=== PATIENT | male | born 1935 | race Caucasian/White ===

== ENCOUNTER 2016-06-26 18:10 | Inpatient (IN) | payer OTHER ==
--- NOTE | 2016-06-26 18:27 | ED ---
Lower Extremity Injury HPI - General Chief Complaint: Extremity Injury, Lower Stated Complaint: hip injury Time Seen by Provider: 06/26/16 18:18 Source: patient, EMS, RN notes reviewed Mode of arrival: EMS Limitations: no limitations - History of Present Illness Initial Comments: 80-year-old male presents emergency Department chief complaint of left hip pain , fall. Patient states that he was going up a step states he fell back onto hard ground. Patient states that he can't move his left leg without severe pain. He's had no prior injuries. Denies any head injury, LOC. Denies any back pain. Patient states she has no paresthesias at this time in his groin region. Patient states that he has a history of COPD no blood thinners. - Related Data Allergies Allergy/AdvReac Type Severity Reaction Status Date / Time No Known Allergies Allergy Verified 06/26/16 19:06 Review of Systems ROS Statement: Those systems with pertinent positive or pertinent negative responses have been documented in the HPI. ROS Other: All systems not noted in ROS Statement are negative. Past Medical History Past Medical History: COPD Additional Past Medical History / Comment(s): "cold feet" History of Any Multi-Drug Resistant Organisms: None Reported Additional Past Surgical History / Comment(s): right arm Past Psychological History: No Psychological Hx Reported Smoking Status: Current every day smoker Past Alcohol Use History: None Reported Past Drug Use History: None Reported General Exam Limitations: no limitations General appearance: alert, in no apparent distress Respiratory exam: Present: normal lung sounds bilaterally. Absent: respiratory distress, wheezes, rales, rhonchi, stridor Cardiovascular Exam: Present: regular rate, normal rhythm, normal heart sounds. Absent: systolic murmur, diastolic murmur, rubs, gallop, clicks GI/Abdominal exam: Present: soft, normal bowel sounds. Absent: distended, tenderness, guarding, rebound, rigid Extremities exam: Present: other (Left leg there is some shortening rotation noted, tenderness to left hip there is equal pedal pulses +2 bilaterally) Skin exam: Present: warm, dry, intact, normal color. Absent: rash Course Vital Signs 06/26/16 06/26/16 18:20 19:46 Temperature 98 F 98.0 F Pulse Rate 98 78 Respiratory 20 16 Rate Blood Pressure 190/87 170/75 O2 Sat by Pulse 98 97 Oximetry Disposition Clinical Impression: Fracture of hip Disposition: ADMITTED IP TO THIS HOSP Condition: Fair Time of Disposition: 19:56
[2016-06-26] MEDS ORDERED: ONDANSETRON 4 MG/2 ML VIAL IVP STA (19:05)
[2016-06-26] MEDS ORDERED: MORPHINE SULFATE 4 MG/ML SYRINGE IVP STA (19:05)
--- NOTE | 2016-06-26 19:10 | XR ---
EXAMINATION TYPE: XR Hip LT and AP Pelvis DATE OF EXAM: 06/26/2016 6:55 PM COMPARISON: NONE HISTORY: Fall and pain TECHNIQUE: 3 views FINDINGS: There is a comminuted intertrochanteric fracture of the left femur. There is coxa vera def ormity. There is impaction. There is no dislocation. The pelvic ring is intact. IMPRESSION: Acute impacted intertrochanteric fracture left femur..
--- NOTE | 2016-06-26 19:47 | XR ---
EXAMINATION TYPE: XR chest 1V DATE OF EXAM: 06/26/2016 7:36 PM COMPARISON: NONE HISTORY: Hip fracture TECHNIQUE: Single frontal view of the chest is obtained. FINDINGS: There is no heart failure nor confluent pneumonic infiltrate. Thoracic aorta is atheromato us. There is no pleural effusion. Costophrenic angles are clear. IMPRESSION: No active cardiopulmonary disease.
[2016-06-26] MEDS ORDERED: ACETAMINOPHEN TAB 325 MG TAB PO PRN (19:56)
[2016-06-26] MEDS ORDERED: ONDANSETRON 4 MG/2 ML VIAL IVP PRN (19:56)
[2016-06-26] MEDS ORDERED: NALOXONE 0.4 MG/ML 1 ML VIAL IV PRN (19:56)
[2016-06-26 20:06] LABS: Basophils # (A) 0.1 k/uL (0-0.2); Basophils % (A) 0 %; CH 33.9; CHCM 33.3; Eosinophils # (A) 0.1 k/uL (0-0.7); Eosinophils % (A) 1 %; HCT 36.8 % (39.0-53.0); HGB 12.2 gm/dL (13.0-17.5); Luc # (Auto) 0.13; Luc % (Auto) 1; Lymphocytes # (A) 1.1 k/uL (1.0-4.8); Lymphocytes % (A) 8 %; MCH 34.1 pg (25.0-35.0); MCHC 33.3 g/dL (31.0-37.0); MCV 102.5 fL (80.0-100.0); Macrocytosis Slight; Mean Platelet Volume 7.1; Monocytes # (A) 0.5 k/uL (0-1.0); Monocytes % (A) 4 %; Neutrophils % (A) 86 %; RBC 3.59 m/uL (4.30-5.90); RDW 12.9 % (11.5-15.5); WBC 12.7 k/uL (3.8-10.6); WBC (Perox) 13.06
[2016-06-26 20:14] LABS: INR 1.2 (<1.1); Partial Thromboplastin Time 28.3 sec (22.0-30.0); Prothrombin Time 12.1 sec (9.0-12.0)
[2016-06-26 20:17] LABS: ALT 26 U/L (21-72); AST 30 U/L (17-59); Alkaline Phosphatase 75 U/L (38-126); Anion Gap 10 mmol/L; Blood Urea Nitrogen 14 mg/dL (9-20); Calcium 9.5 mg/dL (8.4-10.2); Carbon Dioxide 25 mmol/L (22-30); Chloride 97 mmol/L (98-107); Glucose 100 mg/dL (74-99); Non-African American GFR(MDRD) >60 (>60 ml/min/1.73 sqM); Potassium 4.6 mmol/L (3.5-5.1); Sodium 132 mmol/L (137-145); Total Bilirubin 0.7 mg/dL (0.2-1.3); Total Protein 7.7 g/dL (6.3-8.2)
[2016-06-27] MEDS: MORPHINE SULFATE 4 MG/ML SYRINGE IV PRN ×5 (00:15→18:03)
[2016-06-27] MEDS: SODIUM CHLORIDE 0.9% 1,000 ML IV SCH ×2 (00:18→22:42)
[2016-06-27] MEDS: HEPARIN SODIUM,PORCINE 5,000 UNIT/ML 1 ML VIAL SQ SCH ×2 (08:58→22:42)
[2016-06-27 09:48] LABS: Appearance,Urine Clear (Clear); Bilirubin,Urine Negative (Negative); Glucose,Urine (UA) Negative (Negative); Ketones,Urine Negative (Negative); Leukocyte Esterase,Urine Large (Negative); Mucus,Urine Rare /hpf; Nitrite,Urine Negative (Negative); Particle Count 4220; Protein,Urine Trace (Negative); RBC,Urine 29 /hpf (0-5); Squamous Epithelial Cell,Urine <1 /hpf (0-4); UA Billing (MACRO vs. MICRO) MICRO; Urobilinogen,Urine <2.0 mg/dL (<2.0); WBC,Urine 25 /hpf (0-5)
--- NOTE | 2016-06-27 10:12 | P.HPOR ---
History of Present Illness H&P Date: 06/27/16 Chief Complaint: Left hip fracture This is an 80-year-old male who seen and examined today at bedside. Patient was brought to [facility] emergency room yesterday evening after sustaining a fall. Patient was walking up his wheelchair ramp at his home, he lost his balance and fell backwards landing on his left side. He had extreme pain involving the left leg, he was unable to weight-bear. Patient denied hitting his head during the incident, he never lost consciousness. Upon arrival to [facility], imaging and lab tests were done. Images demonstrated a displaced left intertrochanteric hip fracture. I was contacted via the emergency room staff, and this case was discussed in detail. The patient was admitted under orthopedic care, internal medicine was on consult for surgical clearance is. Patient denies any significant orthopedic history involving the bilateral lower extremities. Patient has a medical history of COPD which his primary care managers at this time. Patient does admit he has some numbness in both the feet , he states this is due to a previous back injury about 5 years ago. He denies any surgery involving the lumbar or thoracic spine. Patient currently denies any headaches, lightheadedness, chest pain, shortness of breath, abdominal discomfort, fever or chills. He denies any new acute lower extremity paresthesias. He denies any pain of the upper extremities, including head and neck. Review of Systems Constitutional: Reports as per HPI Past Medical History Past Medical History: COPD Additional Past Medical History / Comment(s): "cold feet" History of Any Multi-Drug Resistant Organisms: None Reported Additional Past Surgical History / Comment(s): right arm Past Psychological History: No Psychological Hx Reported Smoking Status: Current every day smoker Past Alcohol Use History: None Reported Past Drug Use History: None Reported - Past Family History Mother Family Medical History: No Reported History Medications and Allergies Home Medications Medication Instructions Recorded Confirmed Type Ascorbic Acid [Vitamin C] 500 mg PO DAILY 06/26/16 06/26/16 History Aspirin EC [Ecotrin Low Dose] 81 mg PO DAILY 06/26/16 06/26/16 History Atorvastatin [Lipitor] 10 mg PO HS 06/26/16 06/26/16 History Calcium Carbonate/Vitamin D3 1 tab PO DAILY 06/26/16 06/26/16 History [Calcium 600-Vit D3 800 Tab] Garlic 1 tab PO DAILY 06/26/16 06/26/16 History Advair 250/25 1 puff INHALATION RT-DAILY PRN 06/27/16 06/27/16 History Albuterol Inhaler [Ventolin Hfa 1 - 2 puff INHALATION RT-Q6H PRN 06/27/16 History Inhaler] Seebri Inhaler 1 puff INHALATION RT-DAILY 06/27/16 06/27/16 History Allergies Allergy/AdvReac Type Severity Reaction Status Date / Time No Known Allergies Allergy Verified 06/26/16 20:26 Physical Examination Left lower extremity: There is no obvious open lesions or sores present throughout the left lower extremity There is obvious shortening and external rotation of the left lower extremity when compared to the right Tenderness with palpation noted more the proximal femur over the greater trochanter. Logroll maneuver reproduces pain in the left groin region. Patient is unable to straight leg raise at this time Plantar flexion, dorsiflexion, EHL, FHL are intact. Sensory exam to light touch throughout most of the left lower extremity is intact. There is a loss of light touch throughout the plantar aspect of the left foot. Dorsal pedis pulses 2+ Results - Labs Labs: Abnormal Lab Results - Last 24 Hours (Table) 06/27/16 Range/Units 09:00 Urine Protein Trace H (Negative) Urine Blood Moderate H (Negative) Ur Leukocyte Esterase Large H (Negative) Urine RBC 29 H (0-5) /hpf Urine WBC 25 H (0-5) /hpf Urine Mucus Rare H (None) /hpf Result Diagrams: 06/26/16 19:45 06/26/16 19:45 - Diagnostic results Hip x-ray: report reviewed, image reviewed Assessment and Plan Plan: Imaging: Multiple views left hip were reviewed. Images do demonstrate a displaced left hip fracture involving the trochanters, but also in aspect of the subtrochanteric fracture. Assessment: 1. Displaced left intertrochanteric/subtrochanteric hip fracture 2. Status post fall from standing 3. History of COPD Plan: 1. I was able to discuss this case, including both physical exam findings and imaging studies Dr. Cordero. Surgical intervention will be scheduled for , including an ORIF procedure of the left hip. 2. Risk and benefits of the procedure were discussed with the patient, this including but not excluding infection, blood loss, neurovascular injury, pain and stiffness, development of blood clots, and intact healing of bone, need for subsequent surgery, mortality. Patient is in good understanding of the risk and would like to proceed with this procedure. 3. Obtain consent 4. Nonweightbearing left hip 5. Pain control 5. Nothing by mouth after midnight 6. GI and DVT prophylaxis, heparin 5000 units every 12, we'll discontinue night before surgery 7. Medical clearance 8. Further recommendations to follow Time with Patient: Less than 30
[2016-06-27] MEDS: IPRATROPIUM-ALBUTEROL 3 ML NEB INHALATION SCH (22:05)
[2016-06-27] MEDS: BUDESONIDE 0.5 MG/2 ML NEBU INHALATION SCH (22:06)
[2016-06-27] MEDS: NICOTINE 7MG/24HR PATCH TRANSDERM SCH (22:41)
[2016-06-27] MEDS: ATORVASTATIN 10 MG TAB PO SCH (22:42)
--- NOTE | 2016-06-28 05:51 | CONS ---
DATE OF CONSULTATION: 06/27/2016 REASON FOR CONSULTATION: Medical management requested by Dr. Cordero. CONSULTATION: This is a pleasant 80-year-old patient who lives up in [place] and actually his family doctor is in [place]. Patient has a diagnosis of hypercholesterolemia and COPD. Patient was doing stairs and he took a fall, had a fracture of the left femur. Patient due to go in for surgery tomorrow. Patient's niece is at the bedside. Patient is rather active. Got a good exercise tolerance. No chest pain. Patient presents with wheezing. The patient does smoke 4 to 5 cigarettes a day and had no prior cardiac history. REVIEW OF SYSTEMS: CONSTITUTIONAL: None. HEENT: None. RESPIRATORY: As above. CARDIOVASCULAR: None. GASTROINTESTINAL: None. GENITOURINARY: None. MUSCULOSKELETAL: Pain in the left femur, leg. HEMATOLOGICAL: None. LYMPHATICS: None. PSYCHIATRY: None. NEUROLOGICAL: None. Past medical history of COPD and hypercholesterolemia. PAST SURGICAL HISTORY: Right arm surgery. SOCIAL HISTORY: The patient smoked for many years, down to 4 to 5 cigarettes a day. Lives by himself. Patient did work at [employer]. FAMILY HISTORY: Reviewed, noncontributory to the presentation. HOME MEDICATIONS: 1. Seebri inhaler 1 puff daily. 2. Advair 250/25 p.r.n. 3. Ventolin HFA p.r.n. 4. Garlic 1 tablet p.o. daily. 5. Calcium with vitamin D 1 tablet p.o. daily. 6. Lipitor 10 mg q.h.s. 7. Aspirin 81 mg p.o. daily. 8. Vitamin C 500 mg p.o. daily. ALLERGIES: None. On examination, temperature 97, pulse 91, respiratory rate 16, blood pressure 115/61, pulse ox 94% on room air. GENERAL APPEARANCE: Thin build. Sitting up, not in distress. EYES: Pupils equal. Conjunctivae normal. HENT: Oral cavity normal. NECK: JVD not raised. Mass not palpable. RESPIRATORY: Effort normal. LUNGS: Diminished breath sounds, expiratory wheezing. CARDIOVASCULAR: First and second sounds normal. No edema. ABDOMEN: Soft, nontender. Liver and spleen not palpable. LYMPHATIC: No lymph nodes palpable in neck or axillae. PSYCHIATRY: Alert and oriented x3. Mood and affect normal. NEUROLOGICAL: Pupils equal. Cranial nerves grossly intact. EXTREMITIES: Limited range of motion of the left hip. INVESTIGATIONS: White count 12.7, hemoglobin 12.2. Potassium 4.6. Sodium 132. Patient UA does show leukocyte esterase and WBC. Also, chest x-ray nil acute. ASSESSMENT: 1. Acute left femur fracture secondary to mechanical fall. 2. Possible urinary tract infection. Given that patient is going for surgery chose to be careful and we are going to treat with antibiotics even though patient is asymptomatic. 3. Hyponatremia, likely hypoosmolar, will check serum osmolality. 4. Chronic obstructive pulmonary disease is a smoker. 5. Chronic nicotine dependence. PLAN: Patient has got a good exercise tolerance. Does not need any further cardiac workup and has got a good exercise tolerance. Beta kane is not indicated. The patient is on heparin for DVT prophylaxis. I will start the patient on nebulized bronchodilators and inhaled steroids for a short time to minimize pulmonary infection. Care was discussed with the patient and niece at the bedside. Patient will be given nicotine patch. Thank you, Dr. Cordero.
[2016-06-28] MEDS: MORPHINE SULFATE 4 MG/ML SYRINGE IV PRN ×2 (06:27→16:24)
[2016-06-28] MEDS: HEPARIN SODIUM,PORCINE 5,000 UNIT/ML 1 ML VIAL SQ SCH (08:15)
[2016-06-28] MEDS: NICOTINE 7MG/24HR PATCH TRANSDERM SCH (08:15)
[2016-06-28] MEDS: IPRATROPIUM-ALBUTEROL 3 ML NEB INHALATION SCH ×3 (08:19→21:56)
[2016-06-28] MEDS: BUDESONIDE 0.5 MG/2 ML NEBU INHALATION SCH ×2 (08:21→21:56)
[2016-06-28] MEDS ORDERED: LACTATED RINGERS 1,000 ML IV ONE (10:30)
[2016-06-28] MEDS ORDERED: LIDOCAINE 1% 20 ML VIAL (10MG/ML) FOR IV START INTRADERMA ONE (10:30)
[2016-06-28] MEDS ORDERED: ceFAZolin 2 GM in SODIUM CHLORIDE 0.9% 100 ML IVPB STA (10:49)
[2016-06-28] MEDS ORDERED: PHENYLEPHRINE-0.9% NACL SYG 1 MG/10 ML SYRINGE ONE (10:57)
[2016-06-28] MEDS ORDERED: MIDAZOLAM 2 MG/2 ML VIAL ONE (10:57)
[2016-06-28] MEDS ORDERED: fentaNYL (PF) 50 MCG/ML 2 ML AMP ONE (10:57)
[2016-06-28] MEDS ORDERED: diphenhydrAMINE 50 MG/ML 1 ML VIAL ONE (10:57)
[2016-06-28] MEDS ORDERED: KETAMINE 10 MG/ML 20 ML VIAL ONE (10:57)
[2016-06-28] MEDS ORDERED: ceFAZolin 1,000 MG in SODIUM CHLORIDE 0.9% 1,000 ML IRRIGATION ONE (11:33)
[2016-06-28] MEDS ORDERED: MAGNESIUM HYDROXIDE 2,400 MG/10 ML CUP PO PRN (12:15)
[2016-06-28] MEDS ORDERED: HYDROcodone/APAP 5-325MG 1 EACH TAB PO PRN (12:15)
--- NOTE | 2016-06-28 12:18 | P.OP ---
Date of Procedure: 06/28/16 Preoperative Diagnosis: Left hip intertrochanteric fracture Postoperative Diagnosis: Left hip intertrochanteric fracture Procedure(s) Performed: Open reduction and internal fixation left hip intertrochanteric fracture Implants: Depuy hip capture 135 short compression screw with 6 hole sideplate and 6-4.5 mm appropriate length cortical screws Anesthesia: spinal Surgeon: Willian Cordero Non Cdl Driver #1: Noah Webb Estimated Blood Loss (ml): 100 Pathology: none sent Condition: stable Disposition: PACU Indications for Procedure: 80-year-old patient seen with a left hip intertrochanteric fracture. I recommended open reduction and internal fixation. I discussed the procedure, risks, complications and recovery. Patient was agreeable and consent was obtained. Operative Findings: see description of procedure Description of Procedure: Patient was taken to the operative suite. A spinal anesthetic was formed by the department of anesthesia. Patient received preoperative IV antibiotics. Patient was transferred to the fracture table. The left lower extremity was placed in standard longitudinal traction with some adduction and internal rotation. The right lower extremity placed in a well-padded well-leg lara. C -arm was brought in confirming adequate alignment of the fracture. The left lateral hip was now prepped and draped in the normal sterile orthopedic fashion. An incision was made measuring approximately 12 cm beginning at the distal greater trochanter and extending distally. Dissection taken down to iliotibial band. I made an incision through the iliotibial band and the fascia and then bluntly dissected down to the lateral proximal femur. I now introduced a guidewire into the head neck complex confirming adequate alignment with C-arm. That was depth gauged followed by appropriate triple reaming. I then introduced a 135 short capture screw into the head neck complex with excellent bite and purchase. I connected a 6 hole plate to that and secured to the lateral femur. Appropriate drill holes were then made through the plate. I then introduced 6 appropriate length 4.5 mm cortical screws, all had good bite and purchase. We then reviewed the entire construct under AP and lateral intraoperative imaging and noted good positioning of her and she'll fixation and good alignment of the fracture. Spot films were obtained to document that. The wound was irrigated with antibiotic saline solution. The fascia and IT band were then repaired with #1 Vicryl. The subcutaneous soft tissues were approximated with 2-0 Vicryl. The skin was approximated with skin medardo. Sterile dressings were applied. The patient was awakened and transferred to bed followed by recovery in stable satisfactory condition. Jose Maria HOGAN assisted procedure.
--- NOTE | 2016-06-28 13:54 | XR ---
Limited left hip HISTORY: Hip fracture Intraoperative C-arm image documents the procedure
--- NOTE | 2016-06-28 13:54 | FL ---
Fluoroscopy HISTORY: Hip fracture 30 seconds fluoroscopy time supplied to the referring clinician. 1 intraoperative C-arm images docum ent the procedure. See dictated report from orthopedic surgery.
[2016-06-28] MEDS: ceFAZolin 2 GM in SODIUM CHLORIDE 0.9% 100 ML IVPB SCH (20:00)
[2016-06-28] MEDS: ATORVASTATIN 10 MG TAB PO SCH (20:15)
[2016-06-28] MEDS: SENNOSIDES-DOCUSATE SODIUM 1 EACH TAB PO SCH (20:16)
[2016-06-28] MEDS: SODIUM CHLORIDE 0.9% 1,000 ML IV SCH (20:17)
[2016-06-29] MEDS: ceFAZolin 2 GM in SODIUM CHLORIDE 0.9% 100 ML IVPB SCH (02:40)
[2016-06-29] MEDS: IPRATROPIUM-ALBUTEROL 3 ML NEB INHALATION SCH ×4 (07:39→18:48)
[2016-06-29] MEDS: BUDESONIDE 0.5 MG/2 ML NEBU INHALATION SCH ×2 (07:39→18:48)
[2016-06-29] MEDS: HEPARIN SODIUM,PORCINE 5,000 UNIT/ML 1 ML VIAL SQ SCH ×2 (07:44→20:32)
[2016-06-29] MEDS: NICOTINE 7MG/24HR PATCH TRANSDERM SCH (07:44)
[2016-06-29] MEDS: HYDROcodone/APAP 5-325MG 1 EACH TAB PO PRN (07:49)
[2016-06-29 09:00] LABS: Basophils % (A) 0 %; CH 33.6; Eosinophils % (A) 0 %; HCT 27.3 % (39.0-53.0); HDW 2.12; Luc # (Auto) 0.18; Luc % (Auto) 2; Lymphocytes # (A) 0.9 k/uL (1.0-4.8); Lymphocytes % (A) 9 %; MCHC 33.3 g/dL (31.0-37.0); MCV 102.2 fL (80.0-100.0); Macrocytosis Slight; Monocytes # (A) 0.6 k/uL (0-1.0); Monocytes % (A) 6 %; Neutrophils # (A) 7.9 k/uL (1.3-7.7); Neutrophils % (A) 82 %; RBC 2.67 m/uL (4.30-5.90); RDW 12.7 % (11.5-15.5); WBC 9.7 k/uL (3.8-10.6); WBC (Perox) 10.58
[2016-06-29 09:03] LABS: HGB 9.1 gm/dL (13.0-17.5)
--- NOTE | 2016-06-29 10:24 | P.PN ---
Subjective Principal diagnosis: Status post ORIF left hip fracture Patient is seen today resting in his hospital bed, he appears to be in no acute distress. His pain is well-controlled at this time. Patient denies any headaches, lightheadedness, chest pain, nausea vomiting, fever or chills. Objective - Vital Signs Vital signs: Vital Signs Temp 97.9 F 06/29/16 07:00 Pulse 95 06/29/16 07:51 Resp 20 06/29/16 07:00 BP 128/62 06/29/16 07:00 Pulse Ox 93 L 06/29/16 07:00 Intake & Output 06/28/16 06/29/16 06/29/16 18:59 06:59 18:59 Intake Total 551 200 Output Total 550 650 Balance 1 -650 200 Intake: IV 551 Oral 200 Output: Urine 450 650 Estimated Blood Loss 100 Other: Voiding Method Indwelling Catheter Indwelling Catheter Indwelling Catheter # Voids 1 - Exam Left lower extremity: Postoperative bandages removed, medardo are in good position. There is minimal ecchymosis noted around the incision and soft tissue swelling. Plantar flexion , dorsiflexion, EHL, FHL are intact. The calf is soft, no tenderness with palpation. Sensory exam to light touch throughout the extremities intact. Dorsal pedis pulses 2+. - Labs CBC & Chem 7: 06/29/16 08:34 06/26/16 19:45 Labs: Abnormal Lab Results - Last 24 Hours (Table) 06/29/16 Range/Units 08:34 RBC 2.67 L (4.30-5.90) m/uL Hgb 9.1 L D (13.0-17.5) gm/dL Hct 27.3 L (39.0-53.0) % MCV 102.2 H (80.0-100.0) fL Neutrophils # 7.9 H (1.3-7.7) k/uL Lymphocytes # 0.9 L (1.0-4.8) k/uL Assessment and Plan Plan: Assessment: 1. Postop day #1 status post ORIF left hip fracture Plan: 1. Pain control, continue use of low-dose oral medication 2. Nonweightbearing left leg 3. Daily dressing changes/ice and elevate 4. GI and DVT prophylaxis, continue use of heparin subcu 5. Medical recommendations 6. Discharge planning: Case management is working on discharged to rehab facility in [place], we'll continue to follow the patient Time with Patient: Less than 30
--- NOTE | 2016-06-29 10:28 | P.DS ---
Providers Date of admission: 06/26/16 20:01 Expected date of discharge: 07/04/16 Attending physician: Willian Cordero Primary care physician: Stated None Hospital Course: Date of admission: 06/26/2016 Date of discharge: 07/04/2016 Admission diagnosis: Left intertrochanteric/subtrochanteric hip fracture Discharge diagnosis: Status post ORIF left intertrochanteric/subtrochanteric hip fracture Attending physician: Dr. Cordero Surgical procedures: ORIF left intertrochanteric/subtrochanteric hip fracture Brief history: Patient is a 80-year-old male who presented to [facility] emergency room after sustaining a fall on 06/26/2016 for going up a wheelchair ramp at his house. Upon arrival to the emergency room, imaging test were done which demonstrated a displaced left intertrochanteric with subtrochanteric hip fracture. Treatment options were discussed with the patient , surgery was scheduled for 06/28/2016. Hospital course: Details of patient's surgery can be found in operative report. Patient tolerated the procedure well and was subsequently transported to orthopedic floor. Patient's orthopeidc and medical care was provided daily. Patient had daily laboratory tests performed for evaluation of overall blood counts. Patient had daily physical therapy to include strengthening range of motion as well as education with walker ambulation. Patient was treated with heparin for their postoperative DVT prophylaxis during their inpatient stay. Patient was noted to have a relatively uneventful postoperative course. Patient reported satisfactory pain control with oral pain medications by postoperative day 0. Patient showed satisfactory progress with physical therapy. Patient moved steadily through the program and had no difficulty meeting the goals by postoperative day 2. Given patient's otherwise satisfactory course and having met physical therapy goals, plan is to discharge patient rehab on postoperative day 6. Discharge condition/disposition: Patient will be discharged rehab in stable condition. Discharge medications: Instructions are given on resumption of patient's normal daily medications per primary care recommendation, in addition patient will be prescribed [place] 5 mg/325 mg, aspirin 325 mg, Colace 100 mg. Discharge instructions: 1. Wound care and infection precautions, keep incision dry and covered while showering, no lotions, creams, moisturizers. No soaking, tubs, pools, hottubs. Do not scrub over the incision. 2. Nonweightbearing left lower extremity 3. Ice and elevate when necessary. Do not exceed 20 minutes per hour with ice pack. 4. Utilize compression sleeve until seen at first follow up appointment. 5. Pain meds and anticoagulants per prescription. 6. Pain medication has potential to cause constipation. Increase oral fluid and fiber intake. Contact primary care provider if you have not had a bowel movement within 48 hours after discharge 7. No anti-inflammatory medication until discussed at first post operative visit, this including Motrin, Aleve, Mobic, Diclofenac. 8. Follow up in office at 2 weeks postop with Jose Maria Webb PA-C 9. Follow up with your primary care doctor 7-10 days after discharge. 10. Contact [facility] with any questions, . Procedures: Open reduction internal fixation left intertrochanteric hip fracture/ subtrochanteric hip fracture Patient Condition at Discharge: Fair Plan - Discharge Summary New Discharge Prescriptions: Aspirin 325 mg PO BID #60 tab Docusate [Colace] 100 mg PO DAILY #30 capsule Hydrocodone/Acetaminophen [[place] 5-325] 1 - 2 each PO Q6HR PRN #60 tab PRN Reason: Pain Mometasone Furoate [Asmanex Hfa] 1 puff INHALATION DAILY #1 inhaler Discharge Medication List Ascorbic Acid [Vitamin C] 500 mg PO DAILY 06/26/16 [History] Atorvastatin [Lipitor] 10 mg PO HS 06/26/16 [History] Calcium Carbonate/Vitamin D3 [Calcium 600-Vit D3 800 Tab] 1 tab PO DAILY [History] Garlic 1 tab PO DAILY 06/26/16 [History] Advair 250/25 1 puff INHALATION RT-DAILY PRN 06/27/16 [History] Albuterol Inhaler [Ventolin Hfa Inhaler] 1 - 2 puff INHALATION RT-Q6H PRN [History] Seebri Inhaler 1 puff INHALATION RT-DAILY 06/27/16 [History] Aspirin 325 mg PO BID #60 tab 06/30/16 [Rx] Docusate [Colace] 100 mg PO DAILY #30 capsule 06/30/16 [Rx] Hydrocodone/Acetaminophen [[place] 5-325] 1 - 2 each PO Q6HR PRN #60 tab 06/30/16 [Rx] Mometasone Furoate [Asmanex Hfa] 1 puff INHALATION DAILY #1 inhaler 07/03/16 [Rx ] Follow up Appointment(s)/Referral(s): Willian Cordero DO [Doctor of Osteopathic Medicine] - 2 Weeks None,Stated [Primary Care Provider] - 3 Days Patient Instructions/Handouts: Hip Fracture (GEN) Activity/Diet/Wound Care/Special Instructions: Low fat diet. Orthopedic Discharge Instructions: 1. Wound care and infection precautions, keep incision dry and covered while showering, no lotions, creams, moisturizers. No soaking, pools, hot tubs. Do not scrub over incision. 2. Nonweightbearing left lower extremity 3. Ice and elevate when necessary. Do not exceed 20 minutes per hour with ice pack. 4. Utilize compression sleeve until seen at first follow up appointment. 5. Pain meds and anticoagulants per prescription. 6. Pain medication has potential to cause constipation. Increase oral fluid and fiber intake. Contact primary care provider if you have not had a bowel movement within 48 hours after discharge. 7. No anti-inflammatory medication until discussed at first post operative visit, this including Motrin, Aleve, Mobic, Diclofenac 8. Follow up in office at 2 weeks postop with Jose Maria Webb PA-C 9. Follow up with your primary care doctor 7-10 days after discharge. 10. Contact [facility] with any questions, . Discharge Disposition: TRANSFER TO SNF/ECF
[2016-06-29] MEDS: HYDROmorphone 1 MG/ML 1 ML SYRINGE IVP PRN ×2 (10:35→16:28)
[2016-06-29] MEDS: ATORVASTATIN 10 MG TAB PO SCH (20:29)
[2016-06-29] MEDS: SENNOSIDES-DOCUSATE SODIUM 1 EACH TAB PO SCH (20:34)
[2016-06-29] MEDS: SODIUM CHLORIDE 0.9% 1,000 ML IV SCH (21:06)
--- NOTE | 2016-06-30 07:42 | PN ---
DATE OF SERVICE: 06/29/2016 PRESENTING COMPLAINT: Left hip fracture. INTERVAL HISTORY: Patient is status post left hip fracture followed by ORIF, sitting up in a chair, tolerating his diet. Breathing is comfortable. The patient has another niece at the bedside. Review of systems done for constitutional, cardiovascular, GI, pulmonary; relevant findings as above. Current medications are reviewed that include subcu heparin. On examination, temperature 97.6, pulse 95, respirations 20, blood pressure 135/47, pulse ox 93% on room air. GENERAL APPEARANCE: Sitting up in a chair comfortable. EYES: Pupils equal. Conjunctivae normal. NECK: JVD not raised. Mass not palpable. RESPIRATORY: Effort normal. LUNGS: Diminished breath sounds. Mild wheezing. CARDIOVASCULAR: First and second sounds normal. No edema. ABDOMEN: Soft, nontender. Liver and spleen not palpable. PSYCHIATRY: Alert and oriented x3. Mood and affect normal. EXTREMITIES: Incision on the left hip. INVESTIGATIONS: White count 9.7, hemoglobin 9.1. ASSESSMENT: 1. Acute left femur fracture followed by open reduction and internal fixation secondary to mechanical fall. 2. Acute blood loss anemia as expected from surgery. 3. Urinary tract infection, present on admission. 4. Hyponatremia; suspect hypernatremia; suspect, hypoosmolar presentation. 5. Chronic obstructive pulmonary disease in a smoker. 6. Chronic nicotine dependence. PLAN: Care was discussed with the patient. Repeat a CBC and BMP in the morning. Patient's son is in [place]. Does not have a visa to get across and will take him 4 or 5 days. Patient to get rehab. Otherwise patient is medically stable. Thank you Dr. Cordero.
[2016-06-30] MEDS: IPRATROPIUM-ALBUTEROL 3 ML NEB INHALATION SCH ×4 (08:01→21:59)
[2016-06-30] MEDS: BUDESONIDE 0.5 MG/2 ML NEBU INHALATION SCH ×2 (08:01→21:59)
[2016-06-30] MEDS: HEPARIN SODIUM,PORCINE 5,000 UNIT/ML 1 ML VIAL SQ SCH ×2 (09:00→21:20)
[2016-06-30 09:10] LABS: Anion Gap 7 mmol/L; Blood Urea Nitrogen 13 mg/dL (9-20); Calcium 8.2 mg/dL (8.4-10.2); Carbon Dioxide 25 mmol/L (22-30); Chloride 98 mmol/L (98-107); Glucose 110 mg/dL (74-99); Non-African American GFR(MDRD) >60 (>60 ml/min/1.73 sqM); Potassium 4.1 mmol/L (3.5-5.1); Sodium 130 mmol/L (137-145)
[2016-06-30] MEDS: NICOTINE 7MG/24HR PATCH TRANSDERM SCH (09:42)
--- NOTE | 2016-06-30 10:46 | P.PN ---
Subjective Principal diagnosis: Status post ORIF left hip fracture Patient is seen today resting in his hospital bed, he appears to be in no acute distress. His pain is well-controlled at this time. Patient denies any headaches, lightheadedness, chest pain, nausea vomiting, fever or chills. Objective - Vital Signs Vital signs: Vital Signs Temp 96.3 F L 06/30/16 07:40 Pulse 92 06/30/16 08:21 Resp 20 06/30/16 07:40 BP 107/46 06/30/16 07:40 Pulse Ox 94 L 06/30/16 07:40 Intake & Output 06/29/16 06/30/16 06/30/16 18:59 06:59 18:59 Intake Total 200 450 Output Total 350 400 Balance -150 50 Intake: Oral 200 450 Output: Urine 350 400 Other: Voiding Method Indwelling Catheter Urinal # Voids 1 # Bowel Movements 0 - Exam Left lower extremity: Postoperative bandages removed, medardo are in good position. There is minimal ecchymosis noted around the incision and soft tissue swelling. Plantar flexion , dorsiflexion, EHL, FHL are intact. The calf is soft, no tenderness with palpation. Sensory exam to light touch throughout the extremities intact. Dorsal pedis pulses 2+. - Labs CBC & Chem 7: 06/29/16 08:34 06/30/16 08:31 Labs: Abnormal Lab Results - Last 24 Hours (Table) 06/30/16 Range/Units 08:31 Sodium 130 L (137-145) mmol/L Creatinine 0.58 L (0.66-1.25) mg/dL Glucose 110 H (74-99) mg/dL Osmolality 267 L (280-301) mosm/kg Calcium 8.2 L (8.4-10.2) mg/dL Assessment and Plan Plan: Assessment: 1. Postop day #2 status post ORIF left hip fracture Plan: 1. Pain control, continue use of low-dose oral medication 2. Nonweightbearing left leg 3. Daily dressing changes/ice and elevate 4. GI and DVT prophylaxis, continue use of heparin subcu. Will discharge on aspirin 325mg bid 5. Medical recommendations 6. Discharge planning: Case management is working on discharged to rehab facility in [place], patient is stable via orthopedic standpoint and follow up in outpatient setting. Will continue to follow with patient is in hospital Time with Patient: Less than 30
[2016-06-30] MEDS: SODIUM CHLORIDE TAB 1 GM TAB PO SCH ×3 (15:37→21:20)
--- NOTE | 2016-06-30 17:02 | PN ---
DATE OF SERVICE: 06/30/2016 PRESENTING COMPLAINT: Left hip fracture. INTERVAL HISTORY: Patient is status post left hip fracture followed by ORIF, sitting up, comfortable. Pain is controlled. Awaiting transfer over to [facility]. Currently no rehab is available. Otherwise breathing is comfortable. REVIEW OF SYSTEMS: Done for constitutional, cardiovascular, GI, pulmonary; relevant findings as above. Current medications are reviewed. On examination, temperature 96.3, pulse 93, respirations 20, blood pressure 107/86, pulse ox 94% on room air. GENERAL APPEARANCE: Sitting up, comfortable. EYES: Pupils equal. Conjunctivae normal. NECK: JVD not raised. Mass not palpable. RESPIRATORY: Effort normal. LUNGS: Decreased breath sounds. CARDIOVASCULAR: First and second sounds normal. No edema. ABDOMEN: Soft, nontender. Liver and spleen not palpable. PSYCHIATRY: Alert and oriented times three. Mood and affect normal. Left hip incision looks good. INVESTIGATIONS: Potassium 4.1. BUN 30, creatinine 0.58, serum osmolality is 267. ASSESSMENT: 1. Acute left femur fracture followed by open reduction and internal fixation, secondary to fall. 2. Acute blood loss anemia as expected from surgery. 3. Urinary tract infection, present at admission. 4. Hyponatremia, hypoosmolar, from excessive fluid intake. 5. Chronic obstructive pulmonary disease in a smoker. 6. Chronic nicotine dependence. Plan: We will put the patient on fluid restriction. Cut back on the saline. Add some salt diets. Repeat labs in the morning.
[2016-06-30] MEDS: SENNOSIDES-DOCUSATE SODIUM 1 EACH TAB PO SCH (21:20)
[2016-06-30] MEDS: ATORVASTATIN 10 MG TAB PO SCH (21:20)
[2016-07-01] MEDS: IPRATROPIUM-ALBUTEROL 3 ML NEB INHALATION SCH ×4 (08:35→19:40)
[2016-07-01] MEDS: BUDESONIDE 0.5 MG/2 ML NEBU INHALATION SCH ×2 (08:35→19:40)
[2016-07-01] MEDS: SODIUM CHLORIDE TAB 1 GM TAB PO SCH ×4 (08:37→23:07)
[2016-07-01] MEDS: NICOTINE 7MG/24HR PATCH TRANSDERM SCH ×2 (08:37→08:41)
[2016-07-01] MEDS: HEPARIN SODIUM,PORCINE 5,000 UNIT/ML 1 ML VIAL SQ SCH ×2 (08:38→21:22)
[2016-07-01 09:01] LABS: Anion Gap 5 mmol/L; Blood Urea Nitrogen 11 mg/dL (9-20); Calcium 8.1 mg/dL (8.4-10.2); Carbon Dioxide 26 mmol/L (22-30); Chloride 103 mmol/L (98-107); Glucose 96 mg/dL (74-99); Non-African American GFR(MDRD) >60 (>60 ml/min/1.73 sqM); Potassium 4.2 mmol/L (3.5-5.1); Sodium 134 mmol/L (137-145)
[2016-07-01] MEDS: HYDROcodone/APAP 5-325MG 1 EACH TAB PO PRN (10:42)
[2016-07-01] MEDS: ATORVASTATIN 10 MG TAB PO SCH (21:22)
[2016-07-01] MEDS: SENNOSIDES-DOCUSATE SODIUM 1 EACH TAB PO SCH (21:24)
[2016-07-02] MEDS: IPRATROPIUM-ALBUTEROL 3 ML NEB INHALATION SCH ×4 (07:14→19:26)
[2016-07-02] MEDS: BUDESONIDE 0.5 MG/2 ML NEBU INHALATION SCH ×2 (07:14→19:26)
[2016-07-02] MEDS: SODIUM CHLORIDE TAB 1 GM TAB PO SCH ×4 (07:48→21:26)
[2016-07-02] MEDS: NICOTINE 7MG/24HR PATCH TRANSDERM SCH (07:48)
[2016-07-02] MEDS: HEPARIN SODIUM,PORCINE 5,000 UNIT/ML 1 ML VIAL SQ SCH ×2 (07:48→21:26)
--- NOTE | 2016-07-02 08:05 | PN ---
DATE OF SERVICE: 07/01/2016 PRESENTING COMPLAINT: Left hip fracture. INTERVAL HISTORY: Patient is status post left hip fracture followed by ORIF, lying in bed, comfortable, awaiting ( ) to Rehab Center. Breathing is stable. Tolerating a diet. Pain is controlled. Review of systems done for constitutional, cardiovascular, GI, pulmonary, musculoskeletal; relevant findings as above. Current medications are reviewed. On examination, temperature 98.2, pulse 85, respiration 20, blood pressure 113/55, pulse ox 94% on room air. GENERAL APPEARANCE: Sitting up, comfortable. EYES: Pupils equal. Conjunctivae normal. NECK: JVD not raised. Mass not palpable. RESPIRATORY: Effort normal. LUNGS: Decreased breath sounds. CARDIOVASCULAR: First and second sounds normal. No edema. ABDOMEN: Soft, nontender. Liver and spleen not palpable. PSYCHIATRY: Alert and oriented x3. Mood and affect normal. INVESTIGATIONS: Potassium 4.2, sodium 134. ASSESSMENT: 1. Left femur fracture followed by open reduction and internal fixation. 2. Acute blood loss anemia as expected from surgery. 3. Urinary tract infection present on admission. 4. Hyponatremia, hypoosmolar, from excessive fluid intake. 5. Chronic obstructive pulmonary disease in a smoker. 6. Chronic nicotine dependence. PLAN: Care was discussed with the patient. Continue current medication and treatment plan. Check a BMP in the morning.
[2016-07-02 09:21] LABS: Anion Gap 9 mmol/L; Blood Urea Nitrogen 11 mg/dL (9-20); Calcium 8.1 mg/dL (8.4-10.2); Carbon Dioxide 22 mmol/L (22-30); Chloride 104 mmol/L (98-107); Glucose 117 mg/dL (74-99); Non-African American GFR(MDRD) >60 (>60 ml/min/1.73 sqM); Sodium 135 mmol/L (137-145)
[2016-07-02] MEDS: HYDROmorphone 1 MG/ML 1 ML SYRINGE IVP PRN ×2 (15:11→21:26)
[2016-07-02] MEDS: ATORVASTATIN 10 MG TAB PO SCH (21:26)
[2016-07-02] MEDS: SENNOSIDES-DOCUSATE SODIUM 1 EACH TAB PO SCH (21:26)
[2016-07-03] MEDS: IPRATROPIUM-ALBUTEROL 3 ML NEB INHALATION SCH ×5 (00:05→20:08)
[2016-07-03] MEDS ORDERED: IPRATROPIUM-ALBUTEROL 3 ML NEB INHALATION PRN (00:08)
--- NOTE | 2016-07-03 07:36 | PN ---
DATE OF SERVICE: 07/02/2016 PRESENTING COMPLAINT: Left hip fracture. HISTORY: Patient is status post left hip fracture followed by ORIF. Currently lying in bed, awaiting transfer to rehab center. Breathing is stable. Tolerating his diet. Pain is well controlled; however, does have some pain with movement. Hyponatremia is improved. review of systems done for constitutional, cardiovascular, GI, pulmonary, musculoskeletal; relevant findings as above. Current medications include acetaminophen, [place] 5/325, albuterol, DuoNeb, Pulmicort, heparin, and hydromorphone. On exam, temperature is 98.4, heart rate is 100, respiratory rate of 20, blood pressure 159/71, oxygen saturation 91% on room air. GENERAL APPEARANCE: Patient is sitting in bed, comfortable. No acute distress noted. EYES: Pupils equal. Conjunctivae normal. NECK: JVD not raised. Mass not palpable. RESPIRATORY: Effort normal. LUNGS: Decreased breath sounds. CARDIOVASCULAR: First and second sounds normal. No edema. ABDOMEN: Soft, nontender. Liver and spleen not palpable. PSYCHIATRY: Alert and oriented x3. Mood and affect normal. INVESTIGATIONS: Hyponatremia improving. Sodium is 135 today up from 134 yesterday. ASSESSMENT: 1. Left femur fracture followed by an open reduction and internal fixation. 2. Acute blood loss anemia is expected from surgery. 3. Urinary tract infection present on admission. 4. Hyponatremia hypoosmolar improving resulting from excessive fluid intake. 5. Chronic obstructive pulmonary disease in a smoker. 6. Chronic nicotine dependence. PLAN: Care was discussed with the patient. Continue current medications and treatment plan. Will check a BMP in the morning.
[2016-07-03] MEDS: HEPARIN SODIUM,PORCINE 5,000 UNIT/ML 1 ML VIAL SQ SCH ×2 (08:19→21:16)
[2016-07-03] MEDS: NICOTINE 7MG/24HR PATCH TRANSDERM SCH (08:19)
[2016-07-03] MEDS: SODIUM CHLORIDE TAB 1 GM TAB PO SCH ×4 (08:19→21:15)
[2016-07-03] MEDS: BUDESONIDE 0.5 MG/2 ML NEBU INHALATION SCH ×2 (08:33→20:08)
[2016-07-03] MEDS: TIOTROPIUM 18 MCG/PUFF INHALER INHALATION SCH (08:38)
[2016-07-03 09:37] LABS: Anion Gap 9 mmol/L; Blood Urea Nitrogen 10 mg/dL (9-20); Calcium 8.3 mg/dL (8.4-10.2); Carbon Dioxide 25 mmol/L (22-30); Chloride 103 mmol/L (98-107); Glucose 98 mg/dL (74-99); Non-African American GFR(MDRD) >60 (>60 ml/min/1.73 sqM); Potassium 4.2 mmol/L (3.5-5.1); Sodium 137 mmol/L (137-145)
[2016-07-03 10:47] VITALS: BMI 21.1
--- NOTE | 2016-07-03 13:03 | P.PN ---
Subjective Principal diagnosis: Status post ORIF left hip fracture Patient is seen today resting in his hospital bed, he appears to be in no acute distress. His pain is well-controlled at this time. Patient denies any headaches, lightheadedness, chest pain, nausea vomiting, fever or chills. Objective - Vital Signs Vital signs: Vital Signs Temp 97.1 F L 07/03/16 07:00 Pulse 84 07/03/16 12:15 Resp 20 07/03/16 08:00 BP 119/77 07/03/16 07:00 Pulse Ox 94 L 07/03/16 08:37 Intake & Output 07/02/16 07/03/16 07/03/16 18:59 06:59 18:59 Output Total 400 150 Balance -400 -150 Weight 61.235 kg Output: Urine 400 150 Other: Voiding Method Bedpan Bedpan Urinal Urinal Diaper Diaper Incontinent Incontinent # Voids 3 2 - Exam Left lower extremity: Postoperative bandages removed, medardo are in good position. There is minimal ecchymosis noted around the incision and soft tissue swelling. Plantar flexion , dorsiflexion, EHL, FHL are intact. The calf is soft, no tenderness with palpation. Sensory exam to light touch throughout the extremities intact. Dorsal pedis pulses 2+. - Labs CBC & Chem 7: 06/29/16 08:34 07/03/16 07:56 Labs: Abnormal Lab Results - Last 24 Hours (Table) 07/03/16 Range/Units 07:56 Creatinine 0.48 L (0.66-1.25) mg/dL Osmolality 276 L (280-301) mosm/kg Calcium 8.3 L (8.4-10.2) mg/dL Assessment and Plan Plan: Assessment: 1. Postop day #5 status post ORIF left hip fracture Plan: 1. Pain control, continue use of low-dose oral medication 2. Nonweightbearing left leg 3. Daily dressing changes/ice and elevate 4. GI and DVT prophylaxis, continue use of heparin subcu. Will discharge on aspirin 325mg bid 5. Medical recommendations 6. Discharge planning: Case management is working on discharged to rehab facility in [place], patient is stable via orthopedic standpoint and follow up in outpatient setting. Will continue to follow with patient is in hospital Time with Patient: Less than 30
[2016-07-03] MEDS: ATORVASTATIN 10 MG TAB PO SCH (21:16)
[2016-07-03] MEDS: SENNOSIDES-DOCUSATE SODIUM 1 EACH TAB PO SCH (21:16)
--- NOTE | 2016-07-03 23:50 | PN ---
DATE OF SERVICE: 07/03/2016 PRESENTING COMPLAINT: Left hip fracture. HISTORY: Patient is status post left hip fracture followed by an open reduction internal fixation of the left hip. Currently lying in bed, awaiting transfer to a rehab center. Breathing is stable. Discontinued DuoNeb but leaving an as-needed dose. Patient is tolerating his diet. Pain is well controlled; however, patient does have some pain with movement. Hyponatremia is improved. REVIEW OF SYSTEMS: Done for constitutional, cardiovascular, GI, pulmonary, musculoskeletal; relevant findings as above. Current medications include acetaminophen, [place] 5/325, albuterol, DuoNeb as needed, Pulmicort, heparin subcutaneously and hydromorphone IV push for breakthrough pain. On exam, temperature is 97.3, pulse 96, respirations 20, blood pressure 126/56, pulse ox 98% on 2 L nasal cannula. GENERAL APPEARANCE: Patient is sitting in bed, comfortable. No acute distress noted. EYES: Pupils equal. Conjunctivae normal. NECK: JVD not raised. Mass not palpable. RESPIRATORY: Effort normal. LUNGS: Decreased breath sounds bilaterally. CARDIOVASCULAR: First and second sounds normal. No edema. ABDOMEN: Soft, non-tender. Liver and spleen not palpable. PSYCHIATRIC: Alert and oriented x3. Mood and affect normal. INVESTIGATIONS: Sodium 137. All other labs are within normal limits. ASSESSMENT: 1. Left femur fracture followed by an open reduction internal fixation of the left femur. Patient continues to work with Physical Therapy and pain is well controlled. 2. Acute blood loss anemia, expected from surgery. 3. Urinary tract infection, present on admission, now resolved. 4. Hyponatremia, hyperosmolar, improved, resulting from excessive fluid intake. ( ) resolved. Salt tablets will be discontinued. Will continue to follow. 5. Chronic obstructive pulmonary disease in a smoker. 6. Chronic nicotine dependence. PLAN: Care was discussed with the patient. Continue current medication and treatment. Will check BMP in the morning. The daily rounds and physical assessment were performed on the patient by me, the nurse practitioner, and attending Dr. Horner. The relevant and siu points of the physical exam and rounds, diagnoses and plan are as dictated above.
[2016-07-04] MEDS: IPRATROPIUM-ALBUTEROL 3 ML NEB INHALATION SCH ×4 (07:05→21:18)
[2016-07-04] MEDS: BUDESONIDE 0.5 MG/2 ML NEBU INHALATION SCH ×2 (07:05→21:18)
[2016-07-04] MEDS: TIOTROPIUM 18 MCG/PUFF INHALER INHALATION SCH (07:05)
[2016-07-04] MEDS: HEPARIN SODIUM,PORCINE 5,000 UNIT/ML 1 ML VIAL SQ SCH ×2 (07:43→21:07)
[2016-07-04] MEDS: SODIUM CHLORIDE TAB 1 GM TAB PO SCH ×4 (07:43→21:07)
[2016-07-04] MEDS: NICOTINE 7MG/24HR PATCH TRANSDERM SCH (07:43)
--- NOTE | 2016-07-04 10:25 | P.PN ---
Subjective Principal diagnosis: Status post ORIF left hip fracture Patient is seen today resting in his hospital bed, he appears to be in no acute distress. His pain is well-controlled at this time. Patient has developed a blister on the left heel, is currently closed at this time. Patient denies any headaches, lightheadedness, chest pain, nausea vomiting, fever or chills. Objective - Vital Signs Vital signs: Vital Signs Temp 96.7 F L 07/04/16 07:21 Pulse 95 07/04/16 07:21 Resp 24 07/04/16 07:21 BP 147/66 07/04/16 07:21 Pulse Ox 97 07/04/16 07:21 Intake & Output 07/03/16 07/04/16 07/04/16 18:59 06:59 18:59 Intake Total 200 Output Total 150 350 Balance 50 -350 Weight 61.235 kg Intake: Oral 200 Output: Urine 150 350 Other: Voiding Method Bedpan Bedpan Urinal Urinal Diaper Diaper Incontinent Incontinent # Voids 2 - Exam Left lower extremity: Postoperative bandages removed, medardo are in good position. There is minimal ecchymosis noted around the incision and soft tissue swelling. Plantar flexion , dorsiflexion, EHL, FHL are intact. Obvious blister present on the left heel, there is no obvious drainage or open aspect of it. The calf is soft, no tenderness with palpation. Sensory exam to light touch throughout the extremities intact. Dorsal pedis pulses 2+. - Labs CBC & Chem 7: 06/29/16 08:34 07/03/16 07:56 Labs: Abnormal Lab Results - Last 24 Hours (Table) 07/03/16 Range/Units 07:56 Creatinine 0.48 L (0.66-1.25) mg/dL Osmolality 276 L (280-301) mosm/kg Calcium 8.3 L (8.4-10.2) mg/dL Assessment and Plan Plan: Assessment: 1. Postop day #6 status post ORIF left hip fracture Plan: 1. Pain control, continue use of low-dose oral medication 2. Nonweightbearing left leg 3. Blister/pressure ulcer management left heel 4. Daily dressing changes/ice and elevate 5. GI and DVT prophylaxis, continue use of heparin subcu. Will discharge on aspirin 325mg bid 6. Medical recommendations 7. Discharge planning: We should receive information regarding possible admission to rehab in [place] today. Discharge paperwork, including medications and instructions are signed in chart Time with Patient: Less than 30
--- NOTE | 2016-07-04 20:13 | PN ---
DATE OF SERVICE: 07/04/2016 PRESENTING COMPLAINT: Left hip fracture. INTERVAL HISTORY: Patient is status post left hip fracture followed by an open reduction internal fixation of the left hip. Patient is currently lying in bed, awaiting transfer to a rehab center. Breathing is stable. Discontinued DuoNeb but leaving as an as-needed dose. Patient is tolerating his diet. Pain is well controlled. Patient does have some pain with movement. Hyponatremia improved. Review of systems done for constitutional, cardiovascular, GI, pulmonary, musculoskeletal; relevant findings as above. CURRENT MEDICATIONS: 1. Acetaminophen. 2. [place]. 3. Albuterol. 4. DuoNeb as needed. 5. Pulmicort. 6. Heparin subcutaneously. 7. Hydromorphone IV push for breakthrough pain. PHYSICAL EXAMINATION: VITAL SIGNS: Temperature 98.9, heart rate 112, respiratory rate 28, blood pressure 150/65, oxygen saturation 91% on 2 L nasal cannula. GENERAL APPEARANCE: Patient is sitting in bed, comfortable. No acute distress noted. EYES: Pupils equal. Conjunctivae normal. NECK: JVD not raised. Mass not palpable. RESPIRATORY: Effort normal. LUNGS: Decreased breath sounds bilaterally. CARDIOVASCULAR: S1, S2 sounds normal. No edema. ABDOMEN: Soft, nontender. Liver and spleen not palpable. PSYCHIATRIC: Alert and oriented x3. Mood and affect normal. INVESTIGATIONS. No current lab values. ASSESSMENT: 1. Left femur fracture followed by an open reduction internal fixation of the left femur. Patient continues to work with Physical Therapy and pain is well controlled. Awaiting placement. 2. Acute blood loss anemia, expected from surgery. 3. Urinary tract infection, present on admission, now resolved. 4. Hyponatremia, hyperosmolar, resolved. 5. Chronic obstructive pulmonary disease in a smoker. 6. Chronic nicotine dependence. PLAN: Plan of care discussed with the patient. Continue current medication and treatment. Will check BMP in the morning. Will discuss with Care Management regarding placement. History and physical was performed on the patient by me/nurse practitioner and attending/Dr. Horner. The relevant points of the history/physical/diagnoses/plan were discussed and are as dictated above.
--- NOTE | 2016-07-04 20:17 | PN ---
DATE OF SERVICE: 07/02/2016 ADDENDUM: This patient was seen and examined by me. Patient was also seen and examined by the nurse practitioner. I discussed the care with the nurse practitioner, and the relevant points of the history/physical/diagnoses/plan were discussed as dictated in the note by nurse practitioner/Ms. Proctor.
[2016-07-04] MEDS: ATORVASTATIN 10 MG TAB PO SCH (21:07)
[2016-07-04] MEDS: SENNOSIDES-DOCUSATE SODIUM 1 EACH TAB PO SCH (21:08)
--- NOTE | 2016-07-04 21:10 | PN ---
DATE OF SERVICE: 07/03/2016 ADDENDUM: This patient was seen and examined by me. The patient was also seen and examined by nurse practitioner Ms. Proctor. The relevant points of the history, physical, diagnoses and plan were discussed with the nurse practitioner and are as dictated in her note.
[2016-07-05] MEDS: IPRATROPIUM-ALBUTEROL 3 ML NEB INHALATION SCH ×2 (07:24→14:13)
[2016-07-05] MEDS: BUDESONIDE 0.5 MG/2 ML NEBU INHALATION SCH (07:24)
[2016-07-05 07:25] VITALS: BP 132/94; RESP 28; TEMP 97.2
[2016-07-05] MEDS: HEPARIN SODIUM,PORCINE 5,000 UNIT/ML 1 ML VIAL SQ SCH (08:09)
[2016-07-05] MEDS: SODIUM CHLORIDE TAB 1 GM TAB PO SCH ×2 (08:09→14:12)
[2016-07-05] MEDS: NICOTINE 7MG/24HR PATCH TRANSDERM SCH (08:09)
[2016-07-05 09:03] VITALS: PULSE 92
[2016-07-05] MEDS: HYDROcodone/APAP 5-325MG 1 EACH TAB PO PRN (10:32)
--- NOTE | 2016-07-05 10:54 | P.PN ---
Progress Note - Text Patient remains inpatient at [facility]. We are still awaiting insurance clearances and availability rehab facility in [place]. We' ll be available to discuss case with physician.
[2016-07-05] MEDS: TIOTROPIUM 18 MCG/PUFF INHALER INHALATION SCH (12:47)
--- NOTE | 2016-07-06 08:44 | PN ---
DATE OF SERVICE: 07/05/2016 CHIEF COMPLAINT: Left hip fracture. INTERVAL HISTORY: The patient is status post left hip fracture followed by ORIF, patient pretty much doing better, stable looking to go to rehab in [facility]. Breathing is better. Tolerating his diet. Review of systems done for constitutional, o, GI pulmonary, musculoskeletal; relevant findings as above. Current medications are reviewed. On examination, temperature 97.2, pulse 92, respirations 20, blood pressure 130/94, pulse ox 93% on 2 liters. GENERAL APPEARANCE: Sitting up, not in distress. EYES: Pupils equal. Conjunctivae normal. NECK: JVD not raised. Mass not palpable. RESPIRATORY: Effort normal. LUNGS: Decreased breath sounds. CARDIOVASCULAR: First and second sounds normal. No edema. ABDOMEN: Soft, nontender. Liver and spleen not palpable. PSYCHIATRY: Alert and oriented x3. Mood and affect normal. INVESTIGATIONS: No blood work from today. ASSESSMENT: 1. Left femur fracture followed by open reduction and internal fixation on the left femur, stable. 2. Acute blood loss anemia expected from surgery. 3. Urinary tract infection on admission, now resolved. 4. Hyponatremia, hypoosmolar. 5. Chronic obstructive pulmonary disease in a smoker. 6. Chronic dependent dependence. PLAN: Care was discussed at length, again told him to keep off from smoking. Overall doing better. The patient getting transferred to [facility] hopefully today.
--- NOTE | 2016-08-02 22:56 | PN ---
DATE OF SERVICE: 07/02/2016 Attending note: This patient was seen examined by me on 07/02/2016. I reviewed the note of my nurse practitioner, Ms. Proctor. Agreed and discussed the same. Patient is status post left femur ORIF, comfortable, tolerating his diet. Some pain is present. On examination, blood pressure 149/71, pulse ox 91% on room air, lying in bed, comfortable. LUNGS: Decreased breath sounds. CARDIOVASCULAR: First and second sounds normal. Sodium 135. ASSESSMENT: 1. Status post left femur ORIF. 2. Urinary tract infection. 3. Hypoosmolar hyponatremia. PLAN: The patient continues to improve. Continue current medication and treatment plan.
--- NOTE | 2016-08-02 23:53 | PN ---
DATE OF SERVICE: 07/03/2016 ATTENDING NOTE: This patient was seen examined by me on 07/03/16. I reviewed the note of my nurse practitioner, Ms. Proctor. I discussed it with her and agree with the same. Patient is status post left femur fracture. Patient is tolerating her diet. Pain is controlled. On examination, blood pressure is 126/56, pulse ox 96%. Sitting up in bed, comfortable. RESPIRATORY: Effort normal. Lungs have decreased breath sounds. CARDIOVASCULAR: First and second sounds normal. PSYCH: Alert. ASSESSMENT: 1. Left femur fracture followed by open reduction internal fixation. 2. Urinary tract infection, treated, resolved. 3. Hyponatremia, hypo-osmolar, improving. PLAN: Continue current medication and treatment plan. Will follow.
--- NOTE | 2016-08-03 07:14 | PN ---
DATE OF SERVICE: 07/04/2016 ATTENDING NOTE: This patient was seen and examined by me on 07/04/2016. I reviewed the note of my nurse practitioner, Ms. Proctor. Agreed and discussed. Patient is status post left femur fracture and repair. Waiting transfer to rehab. Breathing is stable. Pain is controlled. On examination, blood pressure 120/65, pulse ox 91% on 2 L. GENERAL APPEARANCE: Sitting in bed, comfortable. LUNGS: Slightly decreased breath sounds. CARDIOVASCULAR: First and second seconds normal. ASSESSMENT: 1. Left femur ORIF swelling, fracture. 2. Urinary tract infection, present on admission, treated. 3. Chronic obstructive pulmonary disease. PLAN: Continue current medication and treatment plan. Care was discussed with the patient. Will follow.
== END 2016-07-05 14:41 | DRG 481 ==
LOC: EC 18:10 → 4MS4W 20:01
PROVIDERS: ADMIT Orthopaedic Surgery; ATTEND Orthopaedic Surgery
PROC: 0QS704Z Reposition Left Upper Femur with Internal Fixation Device, Open Approach (ICD-10-PCS; principal; 2016-06-28 10:55)
DX: S72.142A Displaced intertrochanteric fracture of left femur, initial encounter for closed fracture (principal); N39.0 Urinary tract infection, site not specified; J44.9 Chronic obstructive pulmonary disease, unspecified; E87.1 Hypo-osmolality and hyponatremia; D62 Acute posthemorrhagic anemia; M21.752 Unequal limb length (acquired), left femur; R32 Unspecified urinary incontinence; R20.0 Anesthesia of skin; F17.210 Nicotine dependence, cigarettes, uncomplicated; Z79.82 Long term (current) use of aspirin; Z79.899 Other long term (current) drug therapy; E78.00 Pure hypercholesterolemia, unspecified; Z79.51 Long term (current) use of inhaled steroids; Z71.3 Dietary counseling and surveillance; Z87.828 Personal history of other (healed) physical injury and trauma; Y93.01 Activity, walking, marching and hiking; W10.2XXA Fall (on)(from) incline, initial encounter; Y92.017 Garden or yard in single-family (private) house as the place of occurrence of the external cause
CPT/HCPCS: 36415; 71010; 73502; 80048; 80053; 81001; 83930; 85025; 85610; 85730; 86850; 86900; 86901; 94640; 94760; 96374; 96375; 99284